=== PATIENT | male | born 1995 | race Two or more races ===

== ENCOUNTER 2021-03-10 10:08 | Emergency (ER) | payer OTHER ==
[~2021-03-10] VITALS: Ht 170.2 cm; Wt 63.5 kg
[2021-03-10 10:13] VITALS: BP 116/77
--- NOTE | 2021-03-10 10:30 | NUR ---
The patient is [place] [employer] Escorted by Officer [id number] [id number] "In custody- For OTB". The patient is alert and oriented x3. In room air and denies SOB. Respiration regular and unlabored. Denies pain. Will continue to monitor the patient.
[2021-03-10] MEDS ORDERED: NALO4SPR NS (10:42)
--- NOTE | 2021-03-10 10:43 | NUR ---
CALLED [facility] FOR CONSULT.
[2021-03-10] MEDS ORDERED: BUPRENORPHINE HCL 2 MG TAB.SUBL SL ONE (10:44)
[2021-03-10] MEDS ORDERED: ONDANSETRON HCL/PF 4 MG/2 ML VIAL ONE (10:44)
[2021-03-10] MEDS: IV NS 0.9% 1,000 ML IV ONE (10:45)
[2021-03-10] MEDS: BUPRENORPHINE HCL 2 MG TAB.SUBL SL ONE (10:49)
[2021-03-10] MEDS: ONDANSETRON HCL/PF 4 MG/2 ML VIAL IV ONE (10:53)
--- NOTE | 2021-03-10 10:54 | NUR ---
IV LINE ESTABLISHED ON R HAND G20 IV
--- NOTE | 2021-03-10 11:32 | NUR ---
IV removed. Catheter intact and site benign. Pressure and 4x4 applied to site. No bleeding noted. Patient discharged to custody in stable condition. Written and verbal after care instructions given. Patient verbalizes understanding of instruction. Food provided.
--- NOTE | 2021-03-10 11:45 | NUR ---
[facility] Out consult: director of outpatient services consult requested for heroin use. Patient is a 26-year-old, male. SW attempted to meet patient in the emergency department. Patient had already been discharged upon arrival. Per chart, patient presented to the emergency department in custody with [employer] requesting a medical clearance. Patient had reported recent heroin use and presented with complaints of heroin withdrawal symptoms. Patient was administered, Buprenorphine on 03/10/[address] Ball. SW was unable to assess patients need for community resources. Patient was discharged with police. PLAN: Patient was discharged with police. No further SS interventions at this time, however, SW will remain available as needed.
== END 2021-03-10 11:32 | disposition home or self-care (01) ==
LOC: ER 10:22
DX: F11.23 Opioid dependence with withdrawal (principal); R42 Dizziness and giddiness
CPT/HCPCS: 96361; 96374; 99283; J2405; J7030